=== PATIENT | male | born 1950 | race Caucasian/White ===

== ENCOUNTER 2023-02-22 00:09 | Inpatient (IN) | payer MEDICARE ==
[2023-02-22] VITALS (9 sets, daily range): BP systolic 104–127; BP diastolic 50–74
[~2023-02-22] VITALS: Ht 177.8 cm; Wt 93.2 kg
[2023-02-22 01:21] LABS: ALANINE AMINOTRANSFERASE 22 U/L (12-78); ALBUMIN 3.7 G/DL (3.4-5.0); ALKALINE PHOSPHATASE 128 IU/L (46-116); ANION GAP 7 (8-16); ASPARTATE AMINO TRANSFERASE 19 U/L (10-37); BILIRUBIN,TOTAL 0.3 MG/DL (0.1-1.0); BLOOD UREA NITROGEN 18 MG/DL (7-18); CALCIUM 9.1 MG/DL (8.5-10.1); CHLORIDE 106 MMOL/L (99-107); GLUCOSE 105 MG/DL (70-104); POTASSIUM 3.8 MMOL/L (3.5-5.1); SODIUM 139 MMOL/L (135-145); TOTAL CARBON DIOXIDE 26.1 MMOL/L (24-32); TOTAL PROTEIN 7.3 G/DL (6.4-8.2); eGFR 83 ML/MIN
[2023-02-22 01:41] LABS: HEMATOCRIT 43.2 % (42.0-52.0); HEMOGLOBIN 14.7 g/dl (14.0-17.9); RED BLOOD COUNT 4.89 X10'6 (4.70-6.10)
[2023-02-22 01:42] LABS: BASOPHILS # (AUTO) 0.1 X10'3 (0-0.2); BASOPHILS % (AUTO) 1.1 % (0-1); EOSINOPHILS # (AUTO) 0.6 X10'3 (0-0.9); EOSINOPHILS % (AUTO) 6.2 % (0-6); LYMPHOCYTES # (AUTO) 1.5 X10'3 (1.1-4.8); LYMPHOCYTES % (AUTO) 16.9 % (21-51); MEAN CORPUSCULAR HEMOGLOBIN 30.2 PG (27.0-31.0); MEAN CORPUSCULAR HGB CONC 34.1 g/dL (33.0-36.5); MEAN CORPUSCULAR VOLUME 88.5 FL (78-98); MEAN PLATELET VOLUME 7.9 FL (7.4-10.4); MONOCYTES # (AUTO) 1.3 X10'3 (0-0.9); MONOCYTES % (AUTO) 14.7 % (2-12); NEUTROPHILS # (AUTO) 5.5 X10'3 (1.8-7.7); NEUTROPHILS % (AUTO) 61.1 % (42-75); PLATELET COUNT 261 X10'3 (140-440); RED CELL DISTRIBUTION WIDTH 13.7 % (11.5-14.5)
[2023-02-22] MEDS ORDERED: heparin 10,000 units/1 ML INJ IV PRN (02:10)
[2023-02-22] MEDS ORDERED: heparin 25,000 UNIT/250ml bag 250 ML IV PRN (02:10)
[2023-02-22] MEDS ORDERED: heparin 10,000 units/1 ML INJ IV ONE ×2 (02:10)
[2023-02-22] MEDS ORDERED: aspirin 81mg tab.chew PO ONE (02:10)
--- NOTE | 2023-02-22 02:51 | NUR ---
[facility] [phone]
[2023-02-22] MEDS ORDERED: acetaminophen 325mg tablet PO PRN ×2 (02:55)
[2023-02-22] MEDS ORDERED: acetaminophen 650mg rectal suppository RC PRN (02:55)
[2023-02-22] MEDS ORDERED: morphine 2 MG/ML inj. syringe IV PRN ×2 (02:55)
[2023-02-22] MEDS ORDERED: diphenhydrAMINE 50 mg/ml inj IV PRN (02:55)
[2023-02-22] MEDS ORDERED: HYDROcodone/acetaminophen 5mg/325mg tablet PO PRN (02:55)
[2023-02-22] MEDS ORDERED: ondansetron/PF 4mg/2ml inj IV PRN (02:55)
[2023-02-22] MEDS ORDERED: ondansetron 4mg rapidly disintigrating tab PO PRN (02:55)
[2023-02-22] MEDS ORDERED: HYDROmorphone inj. 0.5 MG/0.5 ML DISP.SYRIN IV PRN (02:55)
[2023-02-22] MEDS ORDERED: diphenhydrAMINE 25mg capsule PO PRN (02:55)
[2023-02-22] MEDS ORDERED: mag hydrox/Alum hydrox/simeth 30ml oral suspension PO PRN (02:55)
[2023-02-22] MEDS ORDERED: HYDROcodone/acetaminophen 10/325mg tab PO PRN (02:55)
[2023-02-22] MEDS ORDERED: magnesium hydroxide 30ml (MOM) UD suspension PO PRN (02:55)
[2023-02-22] MEDS ORDERED: bisacodyl 10mg suppository rectal RC PRN (02:55)
[2023-02-22 03:17] LABS: HEMOGLOBIN A1C 5.6 % (4.5-6.2)
[2023-02-22 03:25] LABS: CREATINE KINASE 221 U/L (39-308); LIPASE 105 U/L (73-393); MAGNESIUM 2.3 MG/DL (1.5-2.4); PHOSPHORUS 2.8 MG/DL (2.3-4.5)
[2023-02-22] MEDS: dextrose 5%-1/2 normal saline 1,000 ML IV SCH (03:44)
[2023-02-22] MEDS ORDERED: FLO0.4C PO (03:46)
[2023-02-22] MEDS ORDERED: PROP20TA6 PO (03:46)
--- NOTE | 2023-02-22 03:47 | NUR ---
ASSUMED CARE FROM MARCIE COLES.
[2023-02-22 03:58] LABS: APTT 58 SECONDS (22-32); D-DIMER 0.65 MG/L FEU (0-0.50)
--- NOTE | 2023-02-22 05:20 | NUR ---
he thinks he is passing a kidney stone. He said he passes them about 4xyear and right now it corey a little when he pees and slight right flank discomfort. He said its just like it always is.
--- NOTE | 2023-02-22 05:29 | NUR ---
dr hannah notified and agrees to get urinalyss.
[2023-02-22 05:37] LABS: CLARITY,URINE CLEAR (Clear); COLOR,URINE YELLOW (Yellow); GLUCOSE, URINE NEGATIVE (Neg); KETONES,URINE NEGATIVE (Neg); LEUKOCYTE ESTERASE ,URINE NEGATIVE (Neg); NITRITES, URINE NEGATIVE (Neg); OCCULT BLOOD,URINE NEGATIVE (Neg); PROTEIN,URINE NEGATIVE (Neg); UROBILINOGEN,URINE 0.2 E.U/dL (0.2-1.0)
[2023-02-22 05:42] LABS: UA COLLECTION TYPE VOIDED
--- NOTE | 2023-02-22 06:07 | NUR ---
dr hannah at bedside.
[2023-02-22] MEDS: nitroGLYCERIN 0.1mg/hour patch TD SCH (08:00)
[2023-02-22] MEDS ORDERED: atorvastatin 10mg tablet PO SCH ×2 (08:00→23:03)
[2023-02-22] MEDS: docusate sod 100mg capsule PO SCH ×2 (10:04→23:32)
[2023-02-22] MEDS: aspirin 81mg tab.chew PO SCH (10:05)
[2023-02-22] MEDS: lisinopril 10 MG tablet PO SCH (10:06)
[2023-02-22] MEDS: pantoprazole 40mg Tablet.DR PO SCH (10:07)
--- NOTE | 2023-02-22 12:20 | NUR ---
NITRO PATCH DC'D BY PRICILLA PACHECO
[2023-02-22 15:00] LABS: CHOL/HDL RATIO 4.1 (0.00-4.99); CHOLESTEROL 174 MG/DL (0-200); HDL CHOLESTEROL 42 MG/DL (35-60); LDL CHOLESTEROL 124 MG/DL (50-100); TRIGLYCERIDES 75 MG/DL (20-135)
[2023-02-22] MEDS ORDERED: verapamil 2.5 mg/ml inj IV ONE (17:51)
[2023-02-22] MEDS ORDERED: nitroGLYCERIN-Tridil 50MG/D5W 250 ML IV ONE (17:51)
[2023-02-22] MEDS ORDERED: iohexol 350 MG/ML 50ML vial IV ONE (17:51)
[2023-02-22] MEDS ORDERED: midazolam 1 mg/ML 2ml injection ONE (17:51)
[2023-02-22] MEDS ORDERED: fentaNYL/PF 50MCG/1 ML 2ML syringe ONE (17:51)
[2023-02-22] MEDS ORDERED: LIDOcaine 1% (10mg/ml) 2ml vial ONE (17:51)
[2023-02-22] MEDS ORDERED: iohexol 350MG/ML 100ml bottle IV ONE ×3 (17:51→19:33)
[2023-02-22] MEDS ORDERED: heparin 1,000unit/ml 10ml vial 10 ML ONE (17:51)
[2023-02-22] MEDS ORDERED: ticagrelor 90mg tablet ONE (19:48)
--- NOTE | 2023-02-22 20:15 | NUR ---
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 VSS, pressure wrist band to R wrist cath site intact, fully inflated, R hand is warm to touch, able to move fingers normally. IV fluids inf as ord.
[2023-02-22] MEDS ORDERED: temazepam 15mg capsule PO PRN (21:00)
[2023-02-23] VITALS: BP 113/61
[2023-02-23 02:00] VITALS: BP 101/61
[2023-02-23 06:00] VITALS: BP 114/72
--- NOTE | 2023-02-23 06:15 | NUR ---
Problems reprioritized. Patient report given, questions answered & plan of care reviewed with Sima JACK.
[2023-02-23] MEDS: dextrose 5%-1/2 normal saline 1,000 ML IV SCH ×3 (06:35→08:55)
--- NOTE | 2023-02-23 06:49 | NUR ---
Patient in room PCU 3022. I have received report from Ramona JACK and had the opportunity to ask questions and assume patient care. Pt is laying low fowlers in bed getting an EKG. Pt on RA, no s/s of distress. Pt declines c/o pain at this time. BLL, call light within reach, frequently used items in reach, frequent rounidng, tube and rod straightener socks on. Will continue to monitor.
[2023-02-23 07:01] LABS: BASOPHILS # (AUTO) 0.1 X10'3 (0-0.2); BASOPHILS % (AUTO) 0.7 % (0-1); EOSINOPHILS # (AUTO) 0.4 X10'3 (0-0.9); EOSINOPHILS % (AUTO) 3.8 % (0-6); HEMATOCRIT 40.5 % (42.0-52.0); HEMOGLOBIN 13.7 g/dl (14.0-17.9); LYMPHOCYTES # (AUTO) 1.3 X10'3 (1.1-4.8); LYMPHOCYTES % (AUTO) 13.4 % (21-51); MEAN CORPUSCULAR HEMOGLOBIN 30.4 PG (27.0-31.0); MEAN CORPUSCULAR HGB CONC 33.9 g/dL (33.0-36.5); MEAN CORPUSCULAR VOLUME 89.7 FL (78-98); MEAN PLATELET VOLUME 8.5 FL (7.4-10.4); MONOCYTES # (AUTO) 1.4 X10'3 (0-0.9); MONOCYTES % (AUTO) 14.3 % (2-12); NEUTROPHILS # (AUTO) 6.7 X10'3 (1.8-7.7); NEUTROPHILS % (AUTO) 67.8 % (42-75); PLATELET COUNT 227 X10'3 (140-440); RED BLOOD COUNT 4.51 X10'6 (4.70-6.10); RED CELL DISTRIBUTION WIDTH 14.1 % (11.5-14.5); WHITE BLOOD COUNT 9.9 X10'3 (4.5-11.0)
[2023-02-23 07:26] LABS: ALANINE AMINOTRANSFERASE 20 U/L (12-78); ALBUMIN 3.1 G/DL (3.4-5.0); ALBUMIN/GLOBULIN RATIO 0.9 (1.1-1.5); ANION GAP 8 (8-16); ASPARTATE AMINO TRANSFERASE 47 U/L (10-37); BILIRUBIN,TOTAL 0.7 MG/DL (0.1-1.0); BLOOD UREA NITROGEN 10 MG/DL (7-18); BUN/CREATININE RATIO 11.9 (10.0-20.0); CALCIUM 8.5 MG/DL (8.5-10.1); CHLORIDE 108 MMOL/L (99-107); CHOLESTEROL 131 MG/DL (0-200); CREATININE 0.84 MG/DL (0.60-1.10); GLUCOSE 96 MG/DL (70-104); HDL CHOLESTEROL 33 MG/DL (35-60); LDL CHOLESTEROL 85 MG/DL (50-100); POTASSIUM 3.8 MMOL/L (3.5-5.1); SODIUM 141 MMOL/L (135-145); TOTAL CARBON DIOXIDE 24.8 MMOL/L (24-32); TOTAL PROTEIN 6.4 G/DL (6.4-8.2); TRIGLYCERIDES 88 MG/DL (20-135); eGFR 90 ML/MIN
[2023-02-23 07:59] LABS: ALKALINE PHOSPHATASE 118 IU/L (46-116)
[2023-02-23] MEDS: nitroGLYCERIN 0.1mg/hour patch TD SCH (08:00)
[2023-02-23] MEDS ORDERED: ticagrelor 90mg tablet PO SCH (08:00)
[2023-02-23] MEDS ORDERED: atorvastatin 20mg tablet PO SCH (08:00)
[2023-02-23] MEDS: aspirin 81mg tab.chew PO SCH (08:26)
[2023-02-23] MEDS: lisinopril 10 MG tablet PO SCH (08:26)
[2023-02-23] MEDS: pantoprazole 40mg Tablet.DR PO SCH (08:26)
--- NOTE | 2023-02-23 08:35 | NUR ---
Report given to Ramya merlos.
[2023-02-23 11:00] VITALS: BP 109/67
[2023-02-23] MEDS ORDERED: ASPI81TA53 PO (11:15)
[2023-02-23] MEDS ORDERED: LISI10TA27 PO (11:15)
[2023-02-23] MEDS ORDERED: TICA90TA PO (11:15)
[2023-02-23] MEDS ORDERED: ATOR20TA66 PO (11:15)
--- NOTE | 2023-02-23 13:00 | NUR ---
Pt DC'd to personal vehicle, Daughter is driving. PIV to LFA removed, tip intact, no c/o pain with removal. Discharge education provided. All discharge questions answered. VSS, Pt afebrile, no issues with medication. All belongings left with PT.
== END 2023-02-23 13:39 | disposition home or self-care (01) | DRG 247 ==
LOC: ER 00:10 → ED HOLD 02:58 → PCU 3S 12:11
PROVIDERS: ADMIT Family Medicine; ATTEND Family Medicine
PROC: 4A023N7 Measurement of Cardiac Sampling and Pressure, Left Heart, Percutaneous Approach (ICD-10-PCS; principal; 2023-02-22)
PROC: 027034Z Dilation of Coronary Artery, One Artery with Drug-eluting Intraluminal Device, Percutaneous Approach (ICD-10-PCS; 2023-02-22)
PROC: B2111ZZ Fluoroscopy of Multiple Coronary Arteries using Low Osmolar Contrast (ICD-10-PCS; 2023-02-22)
PROC: B2151ZZ Fluoroscopy of Left Heart using Low Osmolar Contrast (ICD-10-PCS; 2023-02-22)
DX: I21.4 Non-ST elevation (NSTEMI) myocardial infarction (principal); E78.5 Hyperlipidemia, unspecified; K57.90 Diverticulosis of intestine, part unspecified, without perforation or abscess without bleeding; M25.512 Pain in left shoulder; R00.1 Bradycardia, unspecified; W18.39XA Other fall on same level, initial encounter; E66.9 Obesity, unspecified; Z85.46 Personal history of malignant neoplasm of prostate; Z87.442 Personal history of urinary calculi; Z79.899 Other long term (current) drug therapy; Z87.891 Personal history of nicotine dependence; Z88.0 Allergy status to penicillin; Z88.3 Allergy status to other anti-infective agents; Z90.49 Acquired absence of other specified parts of digestive tract; Z88.8 Allergy status to other drugs, medicaments and biological substances; Y93.89 Activity, other specified; Y92.89 Other specified places as the place of occurrence of the external cause; Y99.8 Other external cause status; Z68.29 Body mass index [BMI] 29.0-29.9, adult
CPT/HCPCS: 93306; 93458; 99285; C9600; 36415; 71045; 76937; 80053; 80061; 81003; 82550; 83036; 83690; 83735; 83880; 84100; 84443; 84484; 85025; 85347; 85379; 85610; 85730; 87081; 93005; 99152; 99153; A6258; C1725; C1751; C1769; C1874; C1894; G0378; J1644; J2250; J3010; J3490; J7030; Q9967

== ENCOUNTER 2023-11-25 20:00 | Emergency (ER) | payer MEDICARE ==
[~2023-11-25] VITALS: Ht 177.8 cm; Wt 94.4 kg
[~2023-11-25 20:00] MED LIST: ASPI81TA53 PO; ATOR20TA66 PO; FLO0.4C PO; LISI10TA27 PO; PROP20TA6 PO; TICA90TA PO
[2023-11-25 20:22] LABS: BASOPHILS # (AUTO) 0.1 X10'3 (0-0.2); BASOPHILS % (AUTO) 1.2 % (0-1); EOSINOPHILS # (AUTO) 0.8 X10'3 (0-0.9); EOSINOPHILS % (AUTO) 7.9 % (0-6); HEMATOCRIT 42.1 % (42.0-52.0); HEMOGLOBIN 14.6 g/dl (14.0-17.9); LYMPHOCYTES # (AUTO) 2.1 X10'3 (1.1-4.8); LYMPHOCYTES % (AUTO) 19.7 % (21-51); MEAN CORPUSCULAR HEMOGLOBIN 30.6 PG (27.0-31.0); MEAN CORPUSCULAR HGB CONC 34.6 g/dL (33.0-36.5); MEAN CORPUSCULAR VOLUME 88.3 FL (78-98); MEAN PLATELET VOLUME 8.3 FL (7.4-10.4); MONOCYTES # (AUTO) 1.4 X10'3 (0-0.9); MONOCYTES % (AUTO) 13.6 % (2-12); NEUTROPHILS # (AUTO) 6.1 X10'3 (1.8-7.7); NEUTROPHILS % (AUTO) 57.6 % (42-75); PLATELET COUNT 205 X10'3 (140-440); RED BLOOD COUNT 4.77 X10'6 (4.70-6.10); RED CELL DISTRIBUTION WIDTH 14.3 % (11.5-14.5); WHITE BLOOD COUNT 10.6 X10'3 (4.5-11.0)
[2023-11-25 20:43] LABS: ALANINE AMINOTRANSFERASE 28 U/L (12-78); ALBUMIN 3.8 G/DL (3.4-5.0); ALKALINE PHOSPHATASE 131 IU/L (46-116); ANION GAP 10 (8-16); ASPARTATE AMINO TRANSFERASE 24 U/L (10-37); BILIRUBIN,TOTAL 0.5 MG/DL (0.1-1.0); BLOOD UREA NITROGEN 20 MG/DL (7-18); BUN/CREATININE RATIO 21.1 (10.0-20.0); CALCIUM 8.4 MG/DL (8.5-10.1); CHLORIDE 107 MMOL/L (99-107); CREATININE 0.95 MG/DL (0.60-1.10); GLUCOSE 99 MG/DL (70-104); SODIUM 140 MMOL/L (135-145); TOTAL CARBON DIOXIDE 23.2 MMOL/L (24-32); TOTAL PROTEIN 7.5 G/DL (6.4-8.2); eCRCL 70 ML/MIN; eGFR 77 ML/MIN
[2023-11-25 20:50] LABS: PRO BRAIN NATRIURETIC PEPTIDE 72 PG/ML (0-125)
[2023-11-25 21:21] VITALS: BP 131/69; PULSE 56; RESP 14; TEMP 98; O2SAT 94
== END 2023-11-25 21:23 | disposition home or self-care (01) ==
LOC: ER 20:01
DX: R07.89 Other chest pain (principal); Z88.8 Allergy status to other drugs, medicaments and biological substances; Z88.0 Allergy status to penicillin; Z91.041 Radiographic dye allergy status; Z79.82 Long term (current) use of aspirin; Z79.899 Other long term (current) drug therapy; Z90.49 Acquired absence of other specified parts of digestive tract
CPT/HCPCS: 36415; 71045; 80053; 83880; 84484; 85025; 93005; 99285